=== PATIENT | male | born 1985 | race African-American/Black ===

== ENCOUNTER 2017-09-25 09:25 | Emergency (ER) | payer MEDICAID ==
[~2017-09-25] VITALS: Ht 175.3 cm; Wt 107.7 kg
[2017-09-25 09:28] VITALS: BP 151/57
--- NOTE | 2017-09-25 09:35 | NUR ---
Patient ambulated to bed 11.
--- NOTE | 2017-09-25 09:41 | NUR ---
PATIENT PRESENTS TO ED WITH c/o LOW BACK PAIN . PT STATES HE WORKS AT [employer] AND SPENDS MOST OF THE TIME ON HIS KNESS AND BENT DOWN. PATIENT REPORTS OF TAKING VALIUM AND APPLYING COLD COMPRESS TO HIS BACK BUT HIS PAIN IS STILL UNRELIEVED. DENIES N/V/D; SKIN IS PINK/WARM/DRY; AAOX4 WITH EVEN AND STEADY GAIT; LUNGS CLEAR BL; HR EVEN AND REGULAR; PT DENIES ANY FEVER, CP, SOB, OR COUGH AT THIS TIME; PATIENT STATES PAIN OF 8/10 AT THIS TIME; VSS; PATIENT POSITIONED FOR COMFORT; HOB ELEVATED; BEDRAILS UP X2; BED DOWN. ER MD MADE AWARE OF PT STATUS.
[2017-09-25] MEDS ORDERED: KETOROLAC 60 MG/2 ML VIAL IM ONE (10:20)
[2017-09-25 10:54] VITALS: BP 126/67
--- NOTE | 2017-09-25 10:54 | NUR ---
Patient discharged with v/s stable. Written and verbal after care instructions given and explained. Patient alert, oriented and verbalized understanding of instructions. with steady gait. All questions addressed prior to discharge. ID band removed. Patient advised to follow up with PMD. Rx of NORCO, FLEXERIL, IBUPROFEN given. Patient educated on indication of medication including possible reaction and side effects. Opportunity to ask questions provided and answered.
== END 2017-09-25 10:54 | disposition home or self-care (01) ==
LOC: MED 09:25
DX: S39.012A Strain of muscle, fascia and tendon of lower back, initial encounter (principal); X58.XXXA Exposure to other specified factors, initial encounter; Y93.89 Activity, other specified; Y92.89 Other specified places as the place of occurrence of the external cause; Y99.8 Other external cause status
CPT/HCPCS: 81002; 96372; 99283; J1885